=== PATIENT | male | born 1990 | race Caucasian/White ===

== ENCOUNTER 2022-12-14 21:08 | Emergency (ER) | payer OTHER ==
[2022-12-14 21:22] VITALS: BP 130/85
[2022-12-14] MEDS ORDERED: IBUPROFEN 600 MG TABLET PO STA (21:35)
--- NOTE | 2022-12-14 22:14 | XRAY Report ---
PROCEDURE: Ankle 3 View LT INDICATIONS: Twisted L ankle, c/o L foot pain, swollen ankle. TECHNIQUE: 3 views of the ankle were acquired. COMPARISON: None. FINDINGS: Bones: No fractures or dislocations. Ankle mortise is normally aligned. No suspicious bony lesions . Soft tissues: Swelling at the medial malleolus. No significant tibiotalar joint effusion. Achilles tendon appears normal. IMPRESSION: No fracture is identified. Swelling of the medial malleolus. Reviewed by: Eric Gordon MD on 12/14/2022 10:13 PM PDT Approved by: Eric Gordon MD on 12/14/2022 10:13 PM PDT Station ID: [id number]
--- NOTE | 2022-12-14 22:35 | ED Physician Documentation ---
History of Present Illness - Stated complaint Stated Complaint: LT FOOT /ANKLE INJURY - Chief complaint Chief Complaint: Trauma Ext - History obtained from History obtained from: Patient - Additonal information Additional information: 32-year-old man presents with left ankle pain sudden onset 4 days ago at work for the [employer] when he twisted it while lifting and moving objects. Patient has been bearing weight since that time with difficulty and notes increased swelling over the past couple days. Review of Systems Skin: denies: Abrasion (s), Laceration (s) Musculoskeletal: reports: Extremity pain, Joint pain, Extremity swelling PD PAST MEDICAL HISTORY - Past Medical History Past Medical History: No - Past Surgical History Past Surgical History: Yes - Present Medications Home Medications: Ambulatory Orders Medication Instructions Recorded Confirmed No Known Home Medications 12/14/22 12/14/22 - Allergies Allergies/Adverse Reactions: Allergies Allergy/AdvReac Type Severity Reaction Status Date / Time Sulfa (Sulfonamide Allergy Unknown Verified 12/14/22 21:23 Antibiotics) - Social History Does the pt smoke?: No Smoking Status: Never smoker Does the pt drink ETOH?: Yes Does the pt have substance abuse?: No - Immunizations Immunizations are current?: Yes - POLST Patient has POLST: No PD ED PE NORMAL - Vitals Vital signs reviewed: Yes - General General: Alert and oriented X 3, No acute distress, Well developed/nourished - HEENT HEENT: Atraumatic, PERRL, EOMI - Derm Derm: Normal color, Warm and dry - Extremities Extremities: Other (Left ankle with significant swelling to medial malleolus. 2+ DP pulse. normal sensation. tender with rom. discomfort to palpation to base of 5th metatarsal) - Neuro Neuro: No motor deficit, No sensory deficit Results - Vitals Vitals: Vital Signs - 24 hr 12/14/22 21:18 Temperature 36.6 C Heart Rate 84 Respiratory 16 Rate Blood Pressure 130/85 H O2 Saturation 96 Oxygen O2 Source Room air PD Medical Decision Making - ED course ED course: 32-year-old man presents with left ankle and foot pain after twisting it at work 4 days ago. He does have tenderness to the base of the fifth metatarsal concerning for occult Vaughan fracture therefore a posterior splint and crutches were provided. Patient will follow-up for repeat x-ray in 7 to 10 days with orthopedics. Return precautions given. Departure - Departure Disposition: 01 Home, Self Care Clinical Impression: Ankle injury Condition: Stable Instructions: ED RICE Follow-Up: Janes Pearl MD [Provider Admit Priv/Credential] - Comments: You are seen in the emergency department for left ankle injury. Please follow- up with orthopedics in 7 to 10 days for repeat x-rays. Return to the emergency department if you have new or worsening symptoms in the meantime. You should not bear weight until your repeat x-rays are completed. Use crutches and keep your splint clean and dry.
== END 2022-12-14 23:07 | disposition home or self-care (01) ==
LOC: ED 21:08
DX: S99.912A Unspecified injury of left ankle, initial encounter (principal); X50.1XXA Overexertion from prolonged static or awkward postures, initial encounter; Y93.89 Activity, other specified; Y92.512 Supermarket, store or market as the place of occurrence of the external cause; Y99.0 Civilian activity done for income or pay
CPT/HCPCS: 73610; 99283; A9270